=== PATIENT | male | born 1985 | race Two or more races ===

== ENCOUNTER 2024-01-20 15:07 | Emergency (ER) | payer OTHER ==
[2024-01-20 15:21] VITALS: TEMP 97.8
[2024-01-20 16:48] LABS: Basophils # (A) 0.1 k/uL (0-0.2); Basophils % (A) 1 %; Eosinophils # (A) 0.3 k/uL (0-0.7); Eosinophils % (A) 3 %; HCT 47.5 % (39.0-53.0); HGB 16.4 gm/dL (13.0-17.5); Lymphocytes # (A) 2.9 k/uL (1.0-4.8); Lymphocytes % (A) 33 %; MCH 29.7 pg (25.0-35.0); MCHC 34.6 g/dL (31.0-37.0); MCV 85.8 fL (80.0-100.0); Mean Platelet Volume 6.9; Monocytes # (A) 0.7 k/uL (0-1.0); Monocytes % (A) 7 %; Neutrophils # (A) 4.6 k/uL (1.3-7.7); Neutrophils % (A) 53 %; Platelet Count 243 k/uL (150-450); RBC 5.54 m/uL (4.30-5.90); RDW 12.3 % (11.5-15.5); WBC 8.8 k/uL (3.8-10.6)
[2024-01-20 17:01] LABS: ALT 35 U/L (4-49); AST 29 U/L (17-59); African American GFR (CKD) >90 (>60 ml/min/1.73 sqM); Albumin 4.3 g/dL (3.5-5.0); Alkaline Phosphatase 77 U/L (38-126); Anion Gap 9 mmol/L; Blood Urea Nitrogen 16 mg/dL (9-20); Calcium 9.2 mg/dL (8.4-10.2); Carbon Dioxide 25 mmol/L (22-30); Chloride 103 mmol/L (98-107); Glucose 97 mg/dL (74-99); Magnesium 2.1 mg/dL (1.6-2.3); Non-African American GFR(CKD) >90 (>60 ml/min/1.73 sqM); Potassium 4.1 mmol/L (3.5-5.1); Sodium 137 mmol/L (137-145); Total Bilirubin 0.7 mg/dL (0.2-1.3); Total Protein 7.2 g/dL (6.3-8.2)
--- NOTE | 2024-01-20 17:02 | XR ---
EXAMINATION TYPE: XR chest 2V DATE OF EXAM: 01/20/2024 4:56 PM COMPARISON: None available. CLINICAL INDICATION: Male, 38 years old with history of dysrhythmia; [facility] TECHNIQUE: XR chest 2V Frontal and lateral views of the chest. FINDINGS: Heart size within normal limits. No acute focal consolidation. No pleural effusion. No pneumothorax. No acute osseous abnormality. IMPRESSION: No acute cardiopulmonary disease/process. [facility], , 01/20/2024 5:00 PM
--- NOTE | 2024-01-20 18:59 | ED ---
Arrhythmia/Palpitations HPI - General Chief Complaint: Arrhythmia/Palpitations Stated Complaint: Afib-sent from [facility] Time Seen by Provider: 01/20/24 15:30 Source: patient Mode of arrival: ambulatory Limitations: no limitations - History of Present Illness Initial Comments: 38-year-old male presents to the emergency department under the direction of the [facility]. patient states that he wants to see a chiropractor and therefore had a follow-up to get referral. When he showed up in office they took his vitals. Patient was found to be in A-fib and was transferred to our hospital for further evaluation. He denies a history of A-fib. States he has no symptoms of the A- fib. He does admit occasionally that he has some shortness of breath with exer tion but chalked it up to being out of shape. He denies history of high blood pressure. Does admit to a history of high cholesterol but he does not take any medications even though they have been prescribed. He denies any chest pain. No nausea or vomiting. No history of DVT or PE. No calf pain or swelling. No history of coronary disease. No thyroid issues. No recent illnesses. No other alleviating, precipitating or modifying factors - Related Data Previous Rx's Medication Instructions Recorded Apixaban [Eliquis] 5 mg PO BID #60 tab 01/20/24 Metoprolol Succinate (ER) [Toprol 25 mg PO DAILY #30 tab 01/20/24 XL] Allergies Allergy/AdvReac Type Severity Reaction Status Date / Time No Known Allergies Allergy Verified 01/20/24 15:21 Review of Systems ROS Statement: Those systems with pertinent positive or pertinent negative responses have been documented in the HPI. ROS Other: All systems not noted in ROS Statement are negative. Past Medical History Past Medical History: No Reported History History of Any Multi-Drug Resistant Organisms: None Reported Past Surgical History: No Surgical Hx Reported Past Psychological History: No Psychological Hx Reported Smoking Status: Never smoker Past Alcohol Use History: None Reported Past Drug Use History: None Reported General Exam Limitations: no limitations General appearance: alert, in no apparent distress Head exam: Present: atraumatic, normocephalic, normal inspection Eye exam: Present: normal appearance, PERRL, EOMI. Absent: scleral icterus, conjunctival injection, periorbital swelling ENT exam: Present: normal exam, mucous membranes moist Neck exam: Present: normal inspection. Absent: tenderness, meningismus, lymphadenopathy Respiratory exam: Present: normal lung sounds bilaterally. Absent: respiratory distress, wheezes, rales, rhonchi, stridor Cardiovascular Exam: Present: tachycardia, irregular rhythm, normal heart sounds. Absent: systolic murmur, diastolic murmur, rubs, gallop, clicks GI/Abdominal exam: Present: soft, normal bowel sounds. Absent: distended, tenderness, guarding, rebound, rigid Extremities exam: Present: normal inspection, full ROM, normal capillary refill. Absent: tenderness, pedal edema, joint swelling, calf tenderness Back exam: Present: normal inspection Neurological exam: Present: alert, oriented X3, CN II-XII intact Psychiatric exam: Present: normal affect, normal mood Skin exam: Present: warm, dry, intact, normal color. Absent: rash Course Vital Signs 01/20/24 01/20/24 15:19 19:25 Temperature 97.8 F Pulse Rate 65 85 Respiratory 20 18 Rate Blood Pressure 150/86 122/74 O2 Sat by Pulse 98 98 Oximetry Medical Decision Making - Medical Decision Making Was pt. sent in by a medical professional or institution (ROBIN Wallace, PHARMACY AFFAIRS ASSISTANT, urgent care, hospital, or halfway...) When possible be specific @ -Yes patient was sent in by the [facility] Did you speak to anyone other than the patient for history (EMS, parent, family, police, friend...)? What history was obtained from this source @ -No Did you review nursing and triage notes (agree or disagree)? Why? @ -I reviewed and agree with nursing and triage notes Were old charts reviewed (outside hosp., previous admission, EMS record, old EKG, old radiological studies, urgent care reports/EKG's, halfway records)? Report findings @ -I reviewed the EKG that was sent with the patient from the [facility] Differential Diagnosis (chest pain, altered mental status, abdominal pain women, abdominal pain men, vaginal bleeding, weakness, fever, dyspnea, syncope, headache, dizziness, GI bleed, back pain, seizure, CVA, palpatations, mental health, musculoskeletal)? @ -Differential Palpitations Ventricular arrhythmias, atrial arrhythmias, myocardial infarction, anemia, thyrotoxicosis, electrolyte imbalance, hypokalemia, pulmonary embolism, pulmonary disease, drugs, alcohol, anxiety, stress.... This is not meant to be an all-inclusive list. EKG interpreted by me (3pts min.). Prehospital EKG sent with the patient demonstrates A-fib with a rate of 143. QRS 66. QTc of 463. Some ST depression likely rate dependent EKG at 1539 demonstrates A-fib with a rate of 145. QRS 82. QTc of 372. No acute ST segment elevations or depressions @ -Completed at 1856 and demonstrates sinus rhythm with a rate of 70. TX interval 189. QRS 81. QTc of 397. No acute ST segment elevations or depressions X-rays interpreted by me (1pt min.). @ -Yes and demonstrates no acute process CT interpreted by me (1pt min.). @ -None done U/S interpreted by me (1pt. min.). @ -None done What testing was considered but not performed or refused? (CT, X-rays, U/S, labs)? Why? @ -None What meds were considered but not given or refused? Why? @ -Cardizem IV was considered however patient does convert on his own Did you discuss the management of the patient with other professionals (professionals i.e. , PA, PHARMACY AFFAIRS ASSISTANT, lab, RT, psych nurse, social media senior associate, extrusion process operator, teacher, parking control officer, watch caser)? Give summary @ -Spoke with Dr. San. He recommends that I place the patient on metoprolol succinate and Eliquis. Patient will follow-up in the cardiology office for echo and Holter monitoring. Instructed he should check his heart rate daily and return should he have a rapid rate greater than 115 Was smoking cessation discussed for >3mins.? @ -No Was critical care preformed (if so, how long)? @ -No Were there social determinants of health that impacted care today? How? (Homelessness, low income, unemployed, alcoholism, drug addiction, transportation, low edu. Level, literacy, decrease access to med. care, shelter, rehab)? @ -No Was there de-escalation of care discussed even if they declined (Discuss DNR or withdrawal of care, Hospice)? DNR status @ -No What co-morbidities impacted this encounter? (DM, HTN, Smoking, COPD, CAD, Cancer, CVA, ARF, Chemo, Hep., AIDS, mental health diagnosis, sleep apnea, morbid obesity)? @ -None Was patient admitted / discharged? Hospital course, mention meds given and route, prescriptions, significant lab abnormalities, going to OR and other pert inent info. @ -Upon arrival patient seen and evaluated in bed 26. Thorough history and physical exam was performed. Patient placed on continuous pulse ox and cardiac monitoring. IV was established and laboratory studies are conducted. Patient is in A-fib with RVR. I did discuss the results with the patient. Before Cardizem can be started the patient does convert. I did call and speak with on- call urban redevelopment specialist Dr. San. He feels as if the patient can go home with outpatient follow-up. States that he will order an echo and Holter monitoring in the office. Patient is to be started on metoprolol succinate 25 mg and Eliquis. Patient is informed that his [id number] is 0 and it will depend on how much he is in A-fib as to whether the urban redevelopment specialist will continue anticoagulation. Patient does live in the [place] area and therefore I did provide him with a recommendation for a urban redevelopment specialist closer to home as this is his request. He is to take medications as directed. Check his heart rate daily. Return to the emergency department should he have any elevated heart rate above 115. Patient was agreeable to this plan he was discharged home in stable condition Undiagnosed new problem with uncertain prognosis? @ -No Drug Therapy requiring intensive monitoring for toxicity (Heparin, Nitro, Insulin, Cardizem)? @ -No Were any procedures done? @ -No Diagnosis/symptom? @ -Acute A-fib with RVR, spontaneous conversion Acute, or Chronic, or Acute on Chronic? @ -Acute Uncomplicated (without systemic symptoms) or Complicated (systemic symptoms)? @ -Complicated Side effects of treatment? @ -No Exacerbation, Progression, or Severe Exacerbation? @ -No Poses a threat to life or bodily function? How? (Chest pain, USA, MD, pneumonia, PE, COPD, DKA, ARF, appy, cholecystitis, CVA, Diverticulitis, Homicidal, Suicidal, threat to staff... and all critical care pts) @ -No - Lab Data Result diagrams: 01/20/24 16:36 01/20/24 16:36 Lab Results 01/20/24 01/20/24 01/20/24 Range/Units 16:36 16:36 16:36 WBC 8.8 (3.8-10.6) k/uL RBC 5.54 (4.30-5.90) m/uL Hgb 16.4 (13.0-17.5) gm/dL Hct 47.5 (39.0-53.0) % MCV 85.8 (80.0-100.0) fL MCH 29.7 (25.0-35.0) pg MCHC 34.6 (31.0-37.0) g/dL RDW 12.3 (11.5-15.5) % Plt Count 243 (150-450) k/uL MPV 6.9 Neutrophils % 53 % Lymphocytes % 33 % Monocytes % 7 % Eosinophils % 3 % Basophils % 1 % Neutrophils # 4.6 (1.3-7.7) k/uL Lymphocytes # 2.9 (1.0-4.8) k/uL Monocytes # 0.7 (0-1.0) k/uL Eosinophils # 0.3 (0-0.7) k/uL Basophils # 0.1 (0-0.2) k/uL PT 11.0 (10.0-12.5) sec INR 1.0 (<1.2) APTT 25.0 (22.0-30.0) sec D-Dimer 0.35 (<0.60) mg/L FEU Sodium 137 (137-145) mmol/L Potassium 4.1 (3.5-5.1) mmol/L Chloride 103 (98-107) mmol/L Carbon Dioxide 25 (22-30) mmol/L Anion Gap 9 mmol/L BUN 16 (9-20) mg/dL Creatinine 1.02 (0.66-1.25) mg/dL Est GFR (CKD-EPI)AfAm >90 (>60 ml/min/1.73 sqM) Est GFR (CKD-EPI)NonAf >90 (>60 ml/min/1.73 sqM) Glucose 97 (74-99) mg/dL Calcium 9.2 (8.4-10.2) mg/dL Magnesium 2.1 (1.6-2.3) mg/dL Total Bilirubin 0.7 (0.2-1.3) mg/dL AST 29 (17-59) U/L ALT 35 (4-49) U/L Alkaline Phosphatase 77 (38-126) U/L Troponin I (0.000-0.034) ng/mL Total Protein 7.2 (6.3-8.2) g/dL Albumin 4.3 (3.5-5.0) g/dL TSH 1.340 (0.465-4.680) mIU/L 01/20/24 Range/Units 16:36 WBC (3.8-10.6) k/uL RBC (4.30-5.90) m/uL Hgb (13.0-17.5) gm/dL Hct (39.0-53.0) % MCV (80.0-100.0) fL MCH (25.0-35.0) pg MCHC (31.0-37.0) g/dL RDW (11.5-15.5) % Plt Count (150-450) k/uL MPV Neutrophils % % Lymphocytes % % Monocytes % % Eosinophils % % Basophils % % Neutrophils # (1.3-7.7) k/uL Lymphocytes # (1.0-4.8) k/uL Monocytes # (0-1.0) k/uL Eosinophils # (0-0.7) k/uL Basophils # (0-0.2) k/uL PT (10.0-12.5) sec INR (<1.2) APTT (22.0-30.0) sec D-Dimer (<0.60) mg/L FEU Sodium (137-145) mmol/L Potassium (3.5-5.1) mmol/L Chloride (98-107) mmol/L Carbon Dioxide (22-30) mmol/L Anion Gap mmol/L BUN (9-20) mg/dL Creatinine (0.66-1.25) mg/dL Est GFR (CKD-EPI)AfAm (>60 ml/min/1.73 sqM) Est GFR (CKD-EPI)NonAf (>60 ml/min/1.73 sqM) Glucose (74-99) mg/dL Calcium (8.4-10.2) mg/dL Magnesium (1.6-2.3) mg/dL Total Bilirubin (0.2-1.3) mg/dL AST (17-59) U/L ALT (4-49) U/L Alkaline Phosphatase (38-126) U/L Troponin I <0.012 (0.000-0.034) ng/mL Total Protein (6.3-8.2) g/dL Albumin (3.5-5.0) g/dL TSH (0.465-4.680) mIU/L Disposition Clinical Impression: Atrial fibrillation with RVR Disposition: HOME SELF-CARE Condition: Stable Instructions (If sedation given, give patient instructions): A-fib (Atrial Fibrillation) (ED) Additional Instructions: Please call one of the urban redevelopment specialist to make an appointment. You need an echo and Holter monitoring. Please take the medications as they are prescribed starting tomorrow. Please check your heart rate twice daily. Return should your heart rate be higher than 115. Prescriptions: Apixaban [Eliquis] 5 mg PO BID #60 tab Metoprolol Succinate (ER) [Toprol XL] 25 mg PO DAILY #30 tab Is patient prescribed a controlled substance at d/c from ED?: No Referrals: [facility]inic [Primary Care Provider] - 1-2 days Mark Khan DO [REFERRING] - 1-2 days [facility] [Provider Group] - 1-2 days Time of Disposition: 19:10
[2024-01-20] MEDS ORDERED: METOPROLOL SUCCINATE (ER) 25 MG TAB.ER.24H PO STA (19:07)
[2024-01-20] MEDS ORDERED: APIXABAN 5 MG TAB PO STA (19:08)
[2024-01-20 19:27] VITALS: BP 122/74; PULSE 85; RESP 18
== END 2024-01-20 19:26 | disposition home or self-care (01) ==
LOC: EC 15:07
DX: I48.91 Unspecified atrial fibrillation (principal)
CPT/HCPCS: 36415; 71046; 80053; 83735; 84443; 84484; 85025; 85379; 85610; 85730; 93005; 99285